=== PATIENT | female | born 1985 | race Caucasian/White ===

== ENCOUNTER 2017-06-17 11:03 | Emergency (ER) | payer BC, OTHER ==
[2017-06-17 11:37] VITALS: BP 113/66
--- NOTE | 2017-06-17 11:39 | UC ---
Complaint Female HPI - HPI Summary HPI Summary: 32 year old female presents with complains of burning/pressure with urination. - History Of Current Complaint Chief Complaint: UCGU Stated Complaint: URINARY/BLADDER COMPLAINT Time Seen by Provider: 06/17/17 11:39 Hx Obtained From: Patient Hx Last Menstrual Period: 06/06/17 Onset/Duration: Sudden Onset Timing: Constant Severity Initially: Moderate Severity Currently: Moderate - Allergies/Home Medications Allergies/Adverse Reactions: Allergies Allergy/AdvReac Type Severity Reaction Status Date / Time Penicillins Allergy Hives Verified 06/17/17 11:37 Sulfa Antibiotics Allergy Hives Verified 06/17/17 11:37 PMH/Surg Hx/FS Hx/Imm Hx Previously Healthy: Yes - Surgical History Surgical History: Yes Surgery Procedure, Year, and Place: appy. cyst from left cheek-benign - Family History Known Family History: Positive: None - Social History Alcohol Use: Occasionally Substance Use Type: None Smoking Status (MU): Never Smoked Tobacco - Immunization History Most Recent Influenza Vaccination: none Review of Systems Constitutional: Negative Skin: Negative Eyes: Negative ENT: Negative Respiratory: Negative Cardiovascular: Negative Gastrointestinal: Negative Genitourinary: Dysuria, Frequency Motor: Negative Neurovascular: Negative Musculoskeletal: Negative Neurological: Negative Psychological: Negative All Other Systems Reviewed And Are Negative: Yes Physical Exam Triage Information Reviewed: Yes Vital Signs: Initial Vital Signs Temp 36.7 C 06/17/17 11:32 Pulse 79 06/17/17 11:32 Resp 15 06/17/17 11:32 BP 113/66 06/17/17 11:32 Pulse Ox 99 06/17/17 11:32 Vital Signs Reviewed: Yes Eye Exam: Normal ENT Exam: Normal Dental Exam: Normal Neck exam: Normal Neck: Positive: 1 Respiratory Exam: Normal Cardiovascular Exam: Normal Abdominal Exam: Normal Musculoskeletal Exam: Normal Neurological Exam: Normal Psychological Exam: Normal Skin Exam: Normal Complaint Female Dx - Differential Dx/Diagnosis Provider Diagnoses: burning with urination. urinary frequency Discharge - Discharge Plan Condition: Stable Disposition: HOME Prescriptions: Nitrofurantoin Monohyd Macro [Macrobid] 100 mg PO BID PC #20 cap Phenazopyridine 200 mg (NF) [Pyridium 200 MG tab *] 200 mg PO TID PRN #9 tab PRN Reason: Pain Patient Education Materials: Urinary Tract Infection in Women (ED) Referrals: DOLORES Bingham [Primary Care Provider] -
== END 2017-06-17 12:24 | disposition home or self-care (01) ==
LOC: UCCORT 11:03
DX: R30.0 Dysuria (principal); R39.15 Urgency of urination; Z32.02 Encounter for pregnancy test, result negative
CPT/HCPCS: 81003; 84702; 87086; 99212; G0463

== ENCOUNTER 2017-06-27 07:56 | Emergency (ER) | payer BC ==
[2017-06-27 08:12] VITALS: BP 126/76
--- NOTE | 2017-06-27 08:23 | UC ---
Allergic Reaction HPI - HPI Summary HPI Summary: rash for 2 days after taking macrobid, relief with Benadryl - History of Current Complaint Chief Complaint: UCAllergicReaction Stated Complaint: ALLERGIC REACTION Time Seen by Provider: 06/27/17 08:10 Hx Obtained From: Patient Hx Last Menstrual Period: 06/06/17 ?: No Onset/Duration: Sudden Onset, Lasting Days - 2, Still Present, Resolved - after benadryl Severity Initially: Moderate Severity Currently: Moderate Location: Diffuse Character: Pruritus, Hives Aggravating Factor(s): Nothing Alleviating Factor(s): Antihistamines Associated Signs And Symptoms: Positive: Rash - Related Hx Possible Reaction To: Medications - Macrobid - Allergies/Home Medications Allergies/Adverse Reactions: Allergies Allergy/AdvReac Type Severity Reaction Status Date / Time Nitrofurantoin Allergy Intermediate Rash Verified 06/27/17 08:04 [From Macrobid] Penicillins Allergy Hives Verified 06/27/17 08:04 Sulfa Antibiotics Allergy Hives Verified 06/27/17 08:04 Home Medications: Home Medications diPHENhydraMINE PO* [Benadryl PO 25 MG TAB*] 50 mg PO Q6H PRN 06/27/17 [History Confirmed 06/27/17] PMH/Surg Hx/FS Hx/Imm Hx Previously Healthy: Yes - Surgical History Surgical History: Yes Surgery Procedure, Year, and Place: appy. cyst from left cheek-benign - Family History Known Family History: Positive: None - Social History Occupation: Employed Full-time Lives: With Family Alcohol Use: Occasionally Substance Use Type: None Smoking Status (MU): Never Smoked Tobacco - Immunization History Most Recent Influenza Vaccination: none Review of Systems Constitutional: Negative Skin: Rash Eyes: Negative ENT: Negative Respiratory: Negative Cardiovascular: Negative Gastrointestinal: Negative Genitourinary: Negative Motor: Negative Neurovascular: Negative Musculoskeletal: Negative Neurological: Negative Psychological: Negative Is Patient Immunocompromised?: No All Other Systems Reviewed And Are Negative: Yes Physical Exam Triage Information Reviewed: Yes Appearance: Well-Appearing, No Pain Distress, Well-Nourished Vital Signs: Initial Vital Signs Temp 97.9 F 06/27/17 08:05 Pulse 109 06/27/17 08:05 Resp 18 06/27/17 08:05 BP 126/76 06/27/17 08:05 Pulse Ox 98 06/27/17 08:05 Vital Signs Reviewed: Yes Eye Exam: Normal Eyes: Positive: Conjunctiva Clear ENT Exam: Normal ENT: Positive: Normal ENT inspection, Hearing grossly normal. Negative: Nasal congestion, Trismus, Muffled voice, Hoarse voice Dental Exam: Normal Neck exam: Normal Neck: Positive: Supple, Nontender Respiratory Exam: Normal Respiratory: Positive: Chest non-tender, Lungs clear, Normal breath sounds, No respiratory distress, No accessory muscle use Cardiovascular Exam: Normal Cardiovascular: Positive: RRR, Pulses Normal, Brisk Capillary Refill Musculoskeletal Exam: Normal Musculoskeletal: Positive: Strength Intact, ROM Intact, No Edema Neurological Exam: Normal Neurological: Positive: Alert, Muscle Tone Normal Psychological Exam: Normal Skin: Positive: Other - raise red itching blanching rash Allergic Reaction Course/Dx - Course Course Of Treatment: stop macrobid, ok to continue Benadryl, add Prednisone follow with pcp prn - Differential Dx/Diagnosis Provider Diagnoses: Systemic allergic reaction Discharge - Discharge Plan Condition: Stable Disposition: HOME Prescriptions: predniSONE TAB* [Deltasone TAB*] 20 mg PO DAILY #9 tab Patient Education Materials: Diphenhydramine (By mouth), Urticaria (ED), General Allergic Reaction (ED) Referrals: DOLORES Bingham [Primary Care Provider] - If Needed
== END 2017-06-27 08:33 | disposition home or self-care (01) ==
LOC: UCCORT 07:56
DX: L27.0 Generalized skin eruption due to drugs and medicaments taken internally (principal); T37.8X5A Adverse effect of other specified systemic anti-infectives and antiparasitics, initial encounter; Y92.9 Unspecified place or not applicable; Z88.0 Allergy status to penicillin; Z88.2 Allergy status to sulfonamides
CPT/HCPCS: 99212; G0463